=== PATIENT | female | born 1960 | race Caucasian/White ===

== ENCOUNTER → 2016-08-28 | Outpatient (CLI) | payer MEDICARE ==
[~2016-08-28] MED LIST: ADVAIR 250-501 EACH INH; ADVAIR 2501 DISK W/D PO; ALBUTEROL17 GM; AMLODIPINE BESYL5 MG PO; ATORVASTATIN CA10 MG PO; BACLOFEN10 MG PO; BACTRIM DS TABL1 TA1 PO; BAYER CHEWABLE81 MG PO; BENTYL20 MG PO; CARAFATE1 G PO; CIPRO PO; CIPRO250 MG PO; CYMBALTA PO; DESYREL50 MG PO; DIAZEPAM PO; DICYCLOMINE HCL20 MG PO; DURAGESIC; DURAGESIC TOP; FLAGYL PO; FLEXERIL; FLEXERIL PO; FLEXERIL10 M1 PO; FLEXERIL10 MG PO; HYDROCODON-ACE1 EAC5 PO; KLONOPIN1 M1 PO; KLONOPIN1 MG PO; LASIX; LASIX PO; LEVAQUIN; LEVAQUIN PO; LEVAQUIN750 MG PO; LIBRIUM; LIBRIUM PO; LIDODERM30 EA TOP; LISINOPRIL-HCTZ1 T19 PO; LORTAB 10/500 T1 TAB PO; LORTAB 101 TAB 10/5 PO; MEDROL PO; MULTI-DAY1 TAB PO; NEURONTIN PO; NORCO 10-325 TA1 TAB PO; NORCO 10/3251 TAB PO; NYSTATIN5 ML PO; OXYCODONE HCL10 MG PO; OXYCODONE HCL5 M1 PO; OXYCONTIN PO; OXYIR5 MG PO; PERCOCET 10/3251 TAB PO; PERCOCET10; PERCOCET10 PO; PHENERGAN; PHENERGAN PO; PHENERGAN25 M1 PO; PHENERGAN25 MG PO; PREMPRO 0.45/1.1 TAB PO; PROTONIX PO; PROZAC; PROZAC PO; ROBAXIN 750750 M1 PO; SENNA S TABLET1 TAB PO; SULFAMETHOXAZOL1 TA4 PO; TRAZODONE HCL150 MG PO; TRAZODONE PO; ZANAFLEX PO; ZANAFLEX2 MG PO; ZANAFLEX4 M1 PO
--- NOTE | ~2016-08-28 | MY11 ---
[facility]. [facility] A Service of [facility] RADIOLOGY TEXT RESULTS PATIENT: XOCHITL MONTEZ LOCATION: [facility] : 60 UNIT #: [id number] AGE: [address]: Frannie Rocha MD SEX: F ORDER DR: [id number] [address] [address] [id number] O MR#: [id number] Acc #: [id number] NAME: XOCHITL MONTEZ : 1960 SEX: F STUDY DATE/TIME: 08/28/2016 10:50 UNIT: [facility] ROOM: STUDY DESCRIPTION: MY Mammogram Screening Dig Samir Attending Physician: Frannie Rocha M.D. Referring Physician: Frannie Rocha M.D. Ordering Physician: Frannie Rocha M.D. Primary Care Physician: Frannie Rocha M.D. MEDICAL IMAGING REPORT This report is preliminary unless electronic signature is present. EXAM BILATERAL digital screening mammogram with CAD Date: 08/28/2016 HISTORY A 56-year-old female with family history breast cancer in her mother at the age of 56 and 2 aunts. History of benign left breast biopsy approximately 12-11 years ago. No personal history breast cancer or current complaints. COMPARISON Bilateral screening mammogram 08/23/2015, 03/26/2014, 03/20/2013. TECHNIQUE CC and MLO views were obtained of each breast utilizing digital technique and reviewed with an FDA-approved CAD device. Extremely dense fibroglandular tissue is present bilaterally which can limit sensitivity of mammography. A round well circumscribed nodule containing coarse calcification is demonstrated within the lower outer right breast posterior third, unchanged, in keeping with benign finding such as an involuting fibroadenoma. No new or suspicious nodules are seen. Extensive benign-appearing calcifications are seen throughout both breasts. There are no new focal suspicious clustered microcalcifications. No architectural distortion. IMPRESSION BIRADS 2. Benign findings. Routine bilateral screening mammogram is recommended in year. Patients over the age of 40 are entered into a reminder system with target [facility] A Service [facility] RADIOLOGY TEXT RESULTS PATIENT: XOCHITL MONTEZ LOCATION: [facility] : 60 UNIT #: [id number] AGE: [address]: Frannie Rocha MD SEX: F ORDER DR: due date for the next mammogram. A result letter will also be sent to the patient. BIRADS: 2 Benign Finding Dictated by... Prudence Palmer M.D. THIS IS AN ELECTRONICALLY VERIFIED REPORT Prudence Palmer M.D. at 08/31/2016 8:32 AM TRANG/willy TD: 08/28/2016 12:03 JOB #: [id number] MEDICAL IMAGING REPORT Page 1 of 1
== END | disposition home or self-care (01) ==
LOC: SMAM 10:08
DX: Z12.31 Encounter for screening mammogram for malignant neoplasm of breast (principal); Z80.3 Family history of malignant neoplasm of breast; Z91.89 Other specified personal risk factors, not elsewhere classified
CPT/HCPCS: G0202

== ENCOUNTER → 2016-11-05 | Day surgery (SDC) | payer OTHER, MEDICARE ==
--- NOTE | ~2016-11-05 | OR ---
Unit #: [id number] #: [id number] Patient: XOCHITL MONTEZ [id number] [address] [address] [id number] O MR#: [id number] NAME: XOCHITL MONTEZ ROOM: Date of Procedure: 11/05/2016 Admission Date: 11/05/2016 Surgeon: Brett Rico M.D. : 1960 Attending Physician: Brett Rico M.D. Primary Care Physician: Jacinta Bowles A.P.R.N. OPERATIVE REPORT PREOPERATIVE DIAGNOSES Postlumbar fusion, degenerative disk disease, back pain, radiculopathy. POSTOPERATIVE DIAGNOSES Postlumbar fusion, degenerative disk disease, back pain, radiculopathy. PROCEDURE PERFORMED Lumbar epidural steroid injection with intravenous sedation and fluoroscopic guidance for needle localization. INDICATIONS FOR PROCEDURE The patient is 56-year-old female with return of back and bilateral lower extremity pain. She is status post L2-L3 fusion. There has been the pseudoarthrosis there. She has significant adjacent level disease below the level of her fusion. She has spinal disease with a neurogenic bladder. She treated medically with p.r.n. epidural steroid injections. She usually received 2 injections over the course of few weeks. This is worked much better than just with a single injection. Last injections were completed almost 7 months ago. She did well until just recently. Based on history, pathology, symptomatology, and options, we are going to proceed with a repeat injection today. DESCRIPTION OF PROCEDURE The patient was placed in a seated position. Standard monitors were applied. 4 mg of Versed and 100 mcg of fentanyl given for sedation and anxiolysis, which were adequate. Vital signs remained stable. Sterile prep and drape then of lumbar area was performed. The skin than at the L3-L4 level was localized with 1% lidocaine. An 18-gauge Zondletead needle was then advanced via loss of resistance technique and fluoroscopic guidance in toward the epidural space. After confirming proper positioning with fluoroscopy and radiographic contrast, 80 mg Depo-Medrol and 4 mL of 0.125% bupivacaine were deposited. The patient tolerated the procedure otherwise well and was discharged to the recovery room in stable condition. Dictated by... Brett Rico M.D. LHP/cecy TD: 11/05/2016 14:14 Unit #: [id number] #: [id number] Patient: XOCHITL MONTEZ JOB #: [id number] OPERATIVE REPORT Page 1 of 1 X Brett Rico MD X PROCEDURE OPERATIVE NOTE
== END | disposition home or self-care (01) ==
LOC: CCSC 08:40
DX: M51.16 Intervertebral disc disorders with radiculopathy, lumbar region (principal); Z98.1 Arthrodesis status; N31.9 Neuromuscular dysfunction of bladder, unspecified; K21.9 Gastro-esophageal reflux disease without esophagitis; J44.9 Chronic obstructive pulmonary disease, unspecified
CPT/HCPCS: J1040; J2250; J3010

== ENCOUNTER → 2016-11-12 | Day surgery (SDC) | payer OTHER, MEDICARE ==
--- NOTE | ~2016-11-12 | OR ---
Unit #: [id number] #: [id number] Patient: XOCHITL MONTEZ [id number] [address] [place], [place] [address] [id number] O MR#: [id number] NAME: XOCHITL MONTEZ ROOM: Date of Procedure: 11/12/2016 Admission Date: 11/12/2016 Surgeon: Brett Rico M.D. : 1960 Attending Physician: Brett Rico M.D. Primary Care Physician: Jacinta Bowles A.P.R.N. OPERATIVE REPORT PREOPERATIVE DIAGNOSES Post lumbar fusion, degenerative disk disease, back pain, radiculopathy. POSTOPERATIVE DIAGNOSES Post lumbar fusion, degenerative disk disease, back pain, radiculopathy. PROCEDURE PERFORMED Lumbar epidural steroid injection with intravenous sedation and fluoroscopic guidance for needle localization. INDICATIONS FOR PROCEDURE The patient is a 56-year-old female, status post L2-L3 fusion. She unfortunately has pseudarthrosis at that level. She also has significant adjacent level disease especially below the fusion. She is not a candidate at this point for repeat surgery. She was treated medically with p.r.n. epidural steroid injections generally every 6 to 8 months. Repeat injection was done last week resulting in some moderate changing of her back and lower extremity pain and it always takes the second injection before things settle more significantly. There was some rash on her back that looks more like a topical reaction. I am not sure what it is due to, I would guess it might be the Lidoderm patches. It is not in the position of the plastic drape, nor is it consistent with the Betadine. The patient will abstain from using the patches for few weeks until it fully heals. She may then retrial them. We will repeat a second injection today. DESCRIPTION OF PROCEDURE The patient was placed in a seated position. Standard monitors were applied. 4 mg of Versed and 100 mcg of fentanyl were given for sedation and anxiolysis, which were adequate. Vital signs remained stable. Sterile prep and drape then of the lumbar area was performed. The skin at the L3-L4 level was localized with 1% lidocaine. An 18-gauge DNAdigest needle was then advanced via loss of resistance technique and fluoroscopic guidance in toward the epidural space. After confirming proper positioning with fluoroscopy and radiographic contrast, 80 mg of Depo-Medrol and 4 mL of 0.125% bupivacaine were deposited. The patient tolerated the procedure otherwise well and was discharged to the recovery room in stable condition. Dictated by... Brett Rico M.D. Unit #: [id number] #: [id number] Patient: XOCHITL MONTEZ VELIA/cecy TD: 11/12/2016 12:04 JOB #: [id number] OPERATIVE REPORT Page 1 of 1 X Brett Rico MD X PROCEDURE OPERATIVE NOTE
== END | disposition home or self-care (01) ==
LOC: CCSC 10:26
DX: M51.16 Intervertebral disc disorders with radiculopathy, lumbar region (principal); M47.26 Other spondylosis with radiculopathy, lumbar region; J44.9 Chronic obstructive pulmonary disease, unspecified; K21.9 Gastro-esophageal reflux disease without esophagitis; F41.9 Anxiety disorder, unspecified; Z88.8 Allergy status to other drugs, medicaments and biological substances; Z79.51 Long term (current) use of inhaled steroids; Z79.891 Long term (current) use of opiate analgesic; Z79.899 Other long term (current) drug therapy; Z98.1 Arthrodesis status
CPT/HCPCS: J1040; J2250; J3010

== ENCOUNTER → 2016-11-26 | Day surgery (SDC) | payer OTHER, MEDICARE ==
--- NOTE | ~2016-11-26 | OR ---
Unit #: [id number] #: [id number] Patient: XOCHITL MONTEZ [id number] [address] [place], [place] [address] [id number] O MR#: [id number] NAME: XOCHITL MONTEZ ROOM: Date of Procedure: 11/26/2016 Admission Date: 11/26/2016 Surgeon: Brett Rico M.D. : 1960 Attending Physician: Brett Rioc M.D. Primary Care Physician: Jacinta Bowles A.P.R.N. OPERATIVE REPORT PREOPERATIVE DIAGNOSES Back pain, radiculopathy, degenerative disk disease, postlumbar fusion. POSTOPERATIVE DIAGNOSES Back pain, radiculopathy, degenerative disk disease, postlumbar fusion. PROCEDURE PERFORMED Lumbar epidural steroid injection with intravenous sedation and fluoroscopic guidance for needle localization. INDICATIONS FOR PROCEDURE The patient is a 56-year-old female with return of back and bilateral lower extremity pain. She is status post L2-L3 fusion. She has a pseudoarthrosis. She also has permanent nerve damage with a neurogenic bladder and radiculopathy. She was treated primarily medically. The pain flares. Epidural steroids given the modality that will settle the back to a tolerable baseline. Last injections were helpful for about 6 months. She had 2 injections done at this point over the last month or so, additive significant improvement in her symptom complex. It is not back down to the best baseline we were able to get her to yet, so plan is to proceed with a final injection at this point. DESCRIPTION OF PROCEDURE The patient was placed in a seated position. Standard monitors were applied. 4 mg of Versed and 100 mcg of fentanyl given for sedation and anxiolysis, which were adequate. Vital signs remained stable. Sterile prep and drape then of the lumbar area was performed. The skin then at the L3-L4 level was localized with 1% lidocaine. An 18-gauge [employer] needle was then advanced via loss of resistance technique and fluoroscopic guidance in toward the epidural space. After confirming proper positioning with fluoroscopy and radiographic contrast, 80 mg of Depo-Medrol and 4 mL of 0.125% bupivacaine were deposited. The patient tolerated the procedure otherwise well and was discharged to the recovery room in stable condition. Dictated by... Jennifer Mina/cecy Unit #: [id number] #: [id number] Patient: XOCHITL MONTEZ TD: 11/26/2016 12:00 JOB #: [id number] OPERATIVE REPORT Page 1 of 1 X Brett Rico MD X PROCEDURE OPERATIVE NOTE
== END | disposition home or self-care (01) ==
LOC: CCSC 11-19 11:30
DX: M51.16 Intervertebral disc disorders with radiculopathy, lumbar region (principal); Z98.1 Arthrodesis status
CPT/HCPCS: J1040; J2250; J3010